=== PATIENT | male | born 1980 | race Caucasian/White ===

== ENCOUNTER 2019-12-02 20:47 | Emergency (ER) | payer OTHER ==
[~2019-12-02] VITALS: Ht 170.2 cm; Wt 88.5 kg
[2019-12-02] MEDS ORDERED: SEROQUEL400 MG PO (21:11)
[2019-12-02] MEDS ORDERED: DEPAKOTE ER500 M1 PO ×2 (21:11→21:12)
[2019-12-02] MEDS ORDERED: TYLENOL WITH CO1 TA1 PO (22:38)
[2019-12-02 22:51] VITALS: BP 154/95
== END 2019-12-02 22:53 | disposition home or self-care (01) ==
LOC: M.ERS 20:47
DX: S61.210A Laceration without foreign body of right index finger without damage to nail, initial encounter (principal); F31.9 Bipolar disorder, unspecified; W25.XXXA Contact with sharp glass, initial encounter; Y93.89 Activity, other specified; Y92.89 Other specified places as the place of occurrence of the external cause; Y99.8 Other external cause status